=== PATIENT | female | born 1995 | race African-American/Black ===

== ENCOUNTER 2021-11-11 07:27 | Day surgery (SDC) | payer OTHER ==
[2021-11-11 07:45] LABS: Specific Gravity 1.025 (1.005-1.030)
[2021-11-11] MEDS ORDERED: Ringers Lactate 1,000 ML IV ONE (07:46)
[2021-11-11] MEDS ORDERED: propofoL 200 MG/20 ML VIAL IV ONE (08:00)
[2021-11-11] MEDS ORDERED: MIDAZOLAM HCL 2 MG/2 ML INJ ONE (08:00)
[2021-11-11] MEDS ORDERED: dexAMETHasone 10 MG/ML VIAL ONE (08:00)
[2021-11-11] MEDS ORDERED: LIDOCAINE 2% MPF 5 ML VIAL ONE (08:00)
[2021-11-11] MEDS ORDERED: FENTANYL CITR 100 MCG/2 ML ONE ×2 (08:00→08:53)
[2021-11-11] MEDS ORDERED: ROCURONIUM 50 MG/5 ML VIAL IV ONE (08:01)
[2021-11-11] MEDS ORDERED: ONDANSETRON 4 MG/2 ML VIAL ONE (08:01)
[2021-11-11] MEDS ORDERED: GLYCOPYRROLATE 0.2 MG/ML SYR ONE (08:01)
[2021-11-11] MEDS ORDERED: BUPIVACAINE 0.25% PF 10 ML VIAL ONE (08:07)
[2021-11-11] MEDS ORDERED: BUPIVACAINE 0.25% PF 10 ML VIAL IJ ONE (08:51)
[2021-11-11 09:25] VITALS: O2SAT 100
[2021-11-11] MEDS ORDERED: MORPHINE 4 MG/ML SYR ONE (09:35)
[2021-11-11] MEDS ORDERED: CODEINE 12mg/APAP 120mg PER 5 ML UCUP ONE (10:17)
[2021-11-11] MEDS ORDERED: CODEINE 12mg/APAP 120mg PER 5 ML UCUP PO ONE (10:22)
[2021-11-11 10:32] VITALS: BP 114/64; TEMP 97
--- NOTE | 2021-11-11 11:34 | OP ---
Date of Procedure: 11/11/2021 Surgeon: EFFIE MONTELONGO Primary Care Physician: Unknown. Preoperative Diagnosis: Chronic streptococcal tonsillitis. Postoperative Diagnoses: 1.Chronic streptococcal tonsillitis. 2.Tonsil lithiasis. Procedure: Tonsillectomy. Anesthesia: General endotracheal anesthesia was administered. I also infiltrated approximately 10 m L of 0.25% Marcaine without epinephrine into bilateral tonsillar fossae and anterior tonsillar pillar s and soft palate. Specimens: Bilateral tonsils submitted to pathology for evaluation. Estimated Blood Loss: Less than 5 mL. Findings: Bilateral cryptic inflamed tonsils 2+/4 with evidence of tonsil stones and exudate; no lyudmila noid tissue. Complications: None. Disposition: Stable. The patient tolerated the procedure well. Indication For Procedure: The patient is a pleasant 26-year-old female, who has had multiple strepto coccal tonsillar infections that have been refractory to multiple rounds of antibiotics within the st year. These are indications to bring the patient to operative suite for the above-mentioned proce dure. She understood. All questions were answered. Risks versus benefits and complications were ex plained in detail and a consent form was signed, which was placed in the chart. Description Of Procedure: The patient was transferred from the preoperative holding area to the oper ative suite by Department of Anesthesia, placed on the operating table supine, sedated and intubated in normal fashion. Table was rotated 90 degrees and a head turban was placed. A shoulder roll was n ot needed. A moist Ray-Latoya was placed over the upper lip for protection. A McIvor retractor was int roduced into the right oral commissure and directed along the endotracheal tube and suspended from th e [place] stand. Tonsils were removed by gently retracting the superior poles with straight Allis clamps and dissectin g through the mucosa down to the peritonsillar fascial plane with monopolar electrocautery on the set ting of 20 for coagulation and 1 of cutting. Dissection continued within the fascial planes until th e inferior poles were reached whereby the inferior poles were amputated with suction Bovie. The jose ent had slight oozing of blood of the left superior pole. However, hemostasis was achieved with suct ion Bovie. Saline irrigation was introduced into the oral cavity and removed with suction Bovie. A Niyah retractor was utilized to retract the uvula and soft palate anteriorly and utilizing a laryngeal mirror, I examined the adenoid cavity and there was no evidence of adenoid tissue. All areas were c hecked for hemostasis and hemostasis was achieved. I infiltrated approximately 10 mL of 0.25% Marcai ne without epinephrine into bilateral tonsillar fossae, soft palate, and anterior pillars. I then in troduced a flexible orogastric tube into the esophagus and stomach and all fluid contents were remove d. The patient received preoperative Decadron and Zofran and we gave Robinul IV for drying of secret ions. The patient was then de-suspended from the [place] stand and the McIvor retractor was removed. The jose ent's jaw was checked and found to be in proper alignment. The head turban was removed. The patient was transferred back to Department of Anesthesia in stable condition where she was subsequently awak ened, extubated, and transferred to postoperative care unit. She will be discharged home on analgesic medication and will follow up in 1 -2 weeks or sooner if needed. JORGITO/DAVID Voice ID: [id number] Report ID: [id number]
== END 2021-11-11 10:43 | disposition home or self-care (01) ==
LOC: OR 07:27
PROVIDERS: ATTEND Otolaryngology Facial Plastic Surgery
PROC: 0CTPXZZ Resection of Tonsils, External Approach (ICD-10-PCS; principal; 2021-11-11 08:30)
DX: J03.01 Acute recurrent streptococcal tonsillitis (principal); J35.8 Other chronic diseases of tonsils and adenoids; Z20.822 Contact with and (suspected) exposure to COVID-19
CPT/HCPCS: 81025; 88304; 42826; U0003; J2704; J2250; J3010 ×2; J1100; J7120; J2405